=== PATIENT | female | born 1960 | race African-American/Black ===

== ENCOUNTER 2017-11-17 10:57 | Emergency (ER) | payer SELFPAY ==
[~2017-11-17] VITALS: Ht 157.5 cm; Wt 59.1 kg
[2017-11-17] MEDS ORDERED: ALBU8HFA IH (11:15)
[2017-11-17] MEDS ORDERED: KETOROLAC TROMETHAMINE 30 MG/ML VIAL IM ONE (12:15)
[2017-11-17] MEDS ORDERED: CYCLOBENZAPRINE HCL 10 MG TABLET PO ONE (12:15)
[2017-11-17 13:26] VITALS: BP 128/89
== END 2017-11-17 13:29 | disposition home or self-care (01) ==
LOC: EMS 10:59
DX: S39.012A Strain of muscle, fascia and tendon of lower back, initial encounter (principal); J45.909 Unspecified asthma, uncomplicated; F12.10 Cannabis abuse, uncomplicated; X50.1XXA Overexertion from prolonged static or awkward postures, initial encounter; Y93.89 Activity, other specified; Y92.89 Other specified places as the place of occurrence of the external cause; Y99.8 Other external cause status
CPT/HCPCS: 96372; 99283; J1885